=== PATIENT | female | born 1965 | race Caucasian/White ===

== ENCOUNTER 2019-10-18 15:43 | Outpatient (CLI) | payer OTHER | END 2019-10-18 23:59 | disposition home or self-care (01) | LOC: CFH 15:43 | PROVIDERS: ATTEND Obstetrics & Gynecology | DX: Z12.31 Encounter for screening mammogram for malignant neoplasm of breast (principal); N63.20 Unspecified lump in the left breast, unspecified quadrant | CPT/HCPCS: 77067 ==

== ENCOUNTER → 2019-10-31 | Outpatient (CLI) | payer OTHER | END | disposition home or self-care (01) | LOC: CFH 13:18 | PROVIDERS: ATTEND Obstetrics & Gynecology | DX: N63.22 Unspecified lump in the left breast, upper inner quadrant (principal) | CPT/HCPCS: 76642; 77065; G0279 ==

== ENCOUNTER 2019-11-29 15:53 | Outpatient (CLI) | payer OTHER ==
[2019-11-29] MEDS ORDERED: LORA-702 PO (16:20)
== END 2019-11-29 23:59 | disposition home or self-care (01) ==
LOC: STAR 15:53
PROVIDERS: ATTEND Surgery
DX: Z02.9 Encounter for administrative examinations, unspecified (principal)

== ENCOUNTER 2020-02-07 15:46 | Outpatient (CLI) | payer OTHER ==
[~2020-02-07 15:46] MED LIST: LORA-702 PO
[2020-02-07] MEDS ORDERED: FLUT9.9S NS (16:20)
== END 2020-02-07 23:59 | disposition home or self-care (01) ==
LOC: STAR 15:46
PROVIDERS: ATTEND Surgery
DX: Z01.812 Encounter for preprocedural laboratory examination (principal); Z11.59 Encounter for screening for other viral diseases; D48.62 Neoplasm of uncertain behavior of left breast
CPT/HCPCS: U0001-CS

== ENCOUNTER 2020-02-14 08:28 | Day surgery (SDC) | payer OTHER ==
[~2020-02-14] VITALS: Ht 160 cm; Wt 124.0 kg
[~2020-02-14 08:28] MED LIST changes: +FLUT9.9S NS
[2020-02-14] MEDS ORDERED: LIDOCAINE 1%-EPI 1:100K, 20ML ONE (09:00)
[2020-02-14] MEDS ORDERED: SODIUM BICARBONATE 4.2%, 5ML ONE (09:00)
[2020-02-14] MEDS ORDERED: LIDOCAINE 1%, 20ML ONE (09:00)
[2020-02-14] MEDS ORDERED: MIDAZOLAM 1 MG/ML, 2ML ONE (09:35)
[2020-02-14] MEDS ORDERED: FENTANYL PF 100 MCG/2ML ONE (09:35)
[2020-02-14] MEDS ORDERED: LACTATED RINGERS 1,000 ML IV SCH (09:57)
[2020-02-14 09:58] VITALS: BP 124/90
[2020-02-14] MEDS ORDERED: PROMETHAZINE 25 MG/ML, 1ML IVPush PRN (10:00)
[2020-02-14] MEDS ORDERED: CHLORHEXIDINE 15 ML UDC MM ONE (10:00)
[2020-02-14] MEDS ORDERED: HYDROcodone/APAP 7.5-325MG/15ML UDC PO PRN (10:00)
[2020-02-14] MEDS ORDERED: MEPERIDINE/PF 25MG/0.5ML IVPush PRN (10:00)
[2020-02-14] MEDS ORDERED: FENTANYL PF 100 MCG/2ML IV PRN (10:00)
[2020-02-14] MEDS ORDERED: morphine SULFATE 10 MG/ML, 1ML IVPush PRN (10:00)
[2020-02-14] MEDS ORDERED: CHLORHEXIDINE 15 ML UDC ONE (10:02)
[2020-02-14] MEDS ORDERED: BUPIVACAINE/PF-EPI 0.5% 1:200K ONE (10:20)
[2020-02-14] MEDS ORDERED: SCOPOLAMINE 1MG PATCH TD ONE (10:23)
[2020-02-14 10:29] LABS: HCG UR SG 1.013 (1.003-1.030)
[2020-02-14] MEDS ORDERED: SCOPOLAMINE 1MG PATCH TD SCH (10:30)
[2020-02-14] MEDS ORDERED: DEXAMETHASONE 4 MG/ML, 1ML ONE (10:30)
[2020-02-14] MEDS ORDERED: PROPOFOL 10 MG/ML, 20ML ONE (10:30)
[2020-02-14] MEDS ORDERED: ONDANSETRON 2MG/ML, 2ML ONE (10:30)
[2020-02-14] MEDS ORDERED: BUPIVACAINE/PF-EPI 0.5% 1:200K INFIL ONE (10:53)
== END 2020-02-14 14:15 | disposition home or self-care (01) ==
LOC: SDC 08:28 → OUT 14:15
PROVIDERS: ATTEND Surgery
DX: D48.62 Neoplasm of uncertain behavior of left breast (principal); F41.9 Anxiety disorder, unspecified; E66.01 Morbid (severe) obesity due to excess calories; Z68.42 Body mass index [BMI] 45.0-49.9, adult; Z79.899 Other long term (current) drug therapy
CPT/HCPCS: 19125; 19285; 76098; 77065; 81025; 88305; 88360; C1729; J1100; J2250; J2405; J2704; J3010; J3490; J7120

== ENCOUNTER → 2020-02-27 | Outpatient (CLI) | payer OTHER ==
[2020-02-27 08:34] LABS: ALANINE AMINOTRANSFERASE 39 U/L (12-78); ALBUMIN 3.6 g/dL (3.4-5.0); ANION GAP 9 mmol/L (5-15); BASOPHILS # (AUTO) 0.04 x10^3/uL (0-0.1); BASOPHILS % (AUTO) 1 % (0-1); CALCIUM 9.4 mg/dL (8.5-10.1); CHLORIDE 106 mmol/L (98-107); EOSINOPHILS # (AUTO) 0.17 x10^3/uL (0-0.4); EOSINOPHILS % (AUTO) 2 % (1-7); LYMPHOCYTES # (AUTO) 1.41 x10^3/uL (1-3.4); LYMPHOCYTES % (AUTO) 19 % (22-44); MD NO; MEAN CORPUSCULAR HEMOGLOBIN 31.8 pg (27.0-34.8); MEAN CORPUSCULAR HGB CONC 33.8 g/dL (32.4-35.8); MEAN CORPUSCULAR VOLUME 94.2 fL (80-100); MEAN PLATELET VOLUME 8.1 fL (7.4-10.4); MONOCYTES # (AUTO) 0.52 x10^3/uL (0.2-0.8); MONOCYTES % (AUTO) 7 % (2-9); NEUTROPHILS # (AUTO) 5.23 x10^3/uL (1.8-6.8); NEUTROPHILS % (AUTO) 71 % (42-75); PLATELET COUNT 273 x10^3/uL (130-400); RED BLOOD COUNT 5.03 x10^6/uL (3.82-5.3); RED CELL DISTRIBUTION WIDTH 13.5 % (9.6-15.2)
[2020-02-27 08:43] LABS: ALKALINE PHOSPHATASE 102 U/L (45-117); BILIRUBIN,TOTAL 0.7 mg/dL (0.2-1.0); CHOL/HDL RATIO 4.4; CHOLESTEROL, TOTAL 182 mg/dL (140-239); CREATININE 0.69 mg/dL (0.55-1.02); FREE T4 (FREE THYROXINE) 0.94 ng/dL (0.76-1.46); HDL CHOL % 23 % (28-40); HDL CHOLESTEROL (DIRECT) 41 mg/dL (40-60); LDL CHOLESTEROL,CALCULATED 118 mg/dL (54-169); LDL/HDL RATIO 2.9 (0.5-3.0); TOTAL PROTEIN 8.2 g/dL (6.4-8.2); TRIGLYCERIDES 116 mg/dL (50-200); VLDL CHOLESTEROL 23 mg/dL (0-25)
== END | disposition home or self-care (01) ==
LOC: LAB 08:08
PROVIDERS: ATTEND Internal Medicine Hematology & Oncology
DX: D05.12 Intraductal carcinoma in situ of left breast (principal); L81.9 Disorder of pigmentation, unspecified; N91.1 Secondary amenorrhea; R63.5 Abnormal weight gain
CPT/HCPCS: 36415; 80053; 80061; 82306; 82533; 82677; 83001; 83036; 84439; 84443; 84481; 85025; 86141

== ENCOUNTER 2020-02-28 07:25 | Outpatient (CLI) | payer OTHER | END 2020-02-28 23:59 | disposition home or self-care (01) | LOC: ROC 07:25 | PROVIDERS: ATTEND Radiology Radiation Oncology | DX: D05.12 Intraductal carcinoma in situ of left breast (principal); F41.9 Anxiety disorder, unspecified; E66.01 Morbid (severe) obesity due to excess calories; Z68.42 Body mass index [BMI] 45.0-49.9, adult; Z79.899 Other long term (current) drug therapy | CPT/HCPCS: 99214; G0463 ==

== ENCOUNTER 2020-03-11 08:34 | Outpatient (CLI) | payer OTHER | END 2020-03-11 23:59 | disposition home or self-care (01) | LOC: ROC 08:34 | PROVIDERS: ATTEND Radiology Radiation Oncology | DX: D05.12 Intraductal carcinoma in situ of left breast (principal); F41.9 Anxiety disorder, unspecified; E66.01 Morbid (severe) obesity due to excess calories; Z68.42 Body mass index [BMI] 45.0-49.9, adult; Z79.899 Other long term (current) drug therapy | CPT/HCPCS: 99212; G0463 ==

== ENCOUNTER → 2020-05-21 | Outpatient (CLI) | payer OTHER | END | disposition home or self-care (01) | LOC: ROC 07:43 | PROVIDERS: ATTEND Radiology Radiation Oncology | DX: D05.12 Intraductal carcinoma in situ of left breast (principal) | CPT/HCPCS: 99213; G0463 ==

== ENCOUNTER → 2020-08-04 | Outpatient (CLI) | payer OTHER | END | disposition home or self-care (01) | LOC: CFH 15:10 | PROVIDERS: ATTEND Radiology Radiation Oncology | DX: D05.12 Intraductal carcinoma in situ of left breast (principal) | CPT/HCPCS: 76642; 77066; G0279 ==

== ENCOUNTER → 2020-09-16 | Outpatient (CLI) | payer OTHER | END | disposition home or self-care (01) | LOC: LAB 10:05 | PROVIDERS: ATTEND Internal Medicine Hematology & Oncology | DX: D05.12 Intraductal carcinoma in situ of left breast (principal) | CPT/HCPCS: 36415; 82306; 82670; 83001 ==

== ENCOUNTER → 2020-10-22 | Outpatient (CLI) | payer OTHER | END | disposition home or self-care (01) | LOC: ROC 08:00 | PROVIDERS: ATTEND Radiology Radiation Oncology | DX: Z08 Encounter for follow-up examination after completed treatment for malignant neoplasm (principal); D05.12 Intraductal carcinoma in situ of left breast | CPT/HCPCS: 99212; G0463 ==